=== PATIENT | female | born 1950 | race Caucasian/White ===

== ENCOUNTER 2017-12-31 14:39 | Observation (INO) ==
[2017-12-31] MEDS ORDERED: ONDANSETRON 4 MG/2 ML VIAL IV STA (14:55)
[2017-12-31] MEDS ORDERED: HYDROmorphone 2 MG/1 ML VIAL IV STA (14:55)
[2017-12-31] MEDS ORDERED: SODIUM CHLORIDE 0.9% 1,000 ML IV STA (14:55)
[2017-12-31] MEDS ORDERED: KETOROLAC 30 MG/1 ML VIAL IM STA (14:55)
[2017-12-31] MEDS ORDERED: ONDANSETRON 4 MG/2 ML VIAL ONE (14:58)
[2017-12-31] MEDS ORDERED: HYDROmorphone 2 MG/1 ML VIAL ONE (14:59)
[2017-12-31] MEDS ORDERED: KETOROLAC 30 MG/1 ML VIAL ONE (14:59)
[2017-12-31 16:54] LABS: Basophils % 0.3 % (0.0-0.8); Eosinophils # 0.1 10*3/uL (0.0-0.87); Eosinophils % 0.9 % (0.00-10.9); Hemoglobin 9.8 GM/DL (12.0-16.0); Immature Granulocytes % 0.3 %; Immature Granulocytes Absolute 0.03 #; Lymphocytes # 0.8 10*3/uL (1.4-4.0); Lymphocytes % 8.7 % (21.3-54.2); Mean Corpuscular HGB Conc 33.8 GM/DL (32-36); Mean Corpuscular Hemoglobin 32 PG (27-34); Mean Corpuscular Volume 94.2 FL (87-102); Mean Platelet Volume 10.1 FL (9.6-12.0); Monocytes # 0.5 10*3/uL (0.11-0.8); Monocytes % 5.7 % (1.7-12.7); Neutrophils # 7.5 10*3/uL (1.4-7.4); Neutrophils % 84.1 % (38.7-73.9); Platelet Count 208 T/CUMM (130-400); Red Blood Count 3.08 MC/CUMM (3.8-5.5); Red Cell Distribution Width 13.2 % (9.3-17.3)
[2017-12-31 17:16] LABS: Albumin 3.4 G/DL (3.4-5.0); Bilirubin,Total 0.5 MG/DL (0.2-1.0); Calcium 8.1 MG/DL (8.5-10.1); Osmolality,Calculated 279.4 MOS/KG (273-304); Potassium 3.7 MMOL/L (3.5-5.1); Total Protein 5.8 G/DL (6.4-8.3)
[2017-12-31] MEDS ORDERED: PROMETHAZINE 25 MG/1 ML VIAL IM PRN (18:40)
[2017-12-31] MEDS ORDERED: ACETAMINOPHEN 325 MG TABLET PO PRN (18:40)
[2017-12-31] MEDS: SODIUM CHLORIDE 0.45% 1,000 ML IV SCH (18:40)
[2017-12-31 18:54] LABS: Apearance,Urine Slightly Hazy (Clear); Bilirubin,Urine Negative (Negative); Blood, Urine Small mg/dL (Negative); Glucose,Urine (UA) Negative (Negative); Ketones,Urine 80 mg/dL (Negative); Mucus,Urine Occasional /LPF (Occasional); Nitrite,Urine Negative (Negative); Protein,Urine Negative; RBC,Urine 5 /HPF (0-4); Squamous Epithelial Cell,Urine Occasional /HPF (0-10); Urine Color Yellow (Yellow); Urine Urobilinogen < 2.0 EU/DL (0.2-1.0); WBC,Urine 3 /HPF (0-6)
[2017-12-31] MEDS: HYDROmorphone 2 MG/1 ML VIAL IV PRN (22:24)
[2018-01-01] MEDS: ONDANSETRON 4 MG/2 ML VIAL IV PRN ×2 (03:16→09:29)
[2018-01-01] MEDS: HYDROmorphone 2 MG/1 ML VIAL IV PRN ×2 (03:16→09:28)
[2018-01-01] MEDS: SODIUM CHLORIDE 0.45% 1,000 ML IV SCH (03:17)
[2018-01-01] MEDS ORDERED: TAMSULOSIN 0.4 MG CAPSULE PO SCH (09:00)
[2018-01-01] MEDS ORDERED: WARFARIN 3 MG TABLET PO SCH (09:30)
[2018-01-01] MEDS ORDERED: HYDROmorphone 2 MG TABLET PO SCH (09:30)
[2018-01-01 10:58] VITALS: BP 113/64
[2018-01-01] MEDS ORDERED: POTASSIUM CITRATE 10 MEQ TABLET PO SCH (21:00)
[2018-01-01] MEDS ORDERED: SOTALOL 80 MG TABLET PO SCH (21:00)
[2018-01-02] MEDS ORDERED: LEVOTHYROXINE 112 MCG TABLET PO SCH (07:00)
[2018-01-02] MEDS ORDERED: WARFARIN 2 MG TABLET PO SCH (09:00)
[2018-01-02] MEDS ORDERED: TAMSULOSIN 0.4 MG CAPSULE PO SCH (09:00)
[2018-01-02] MEDS ORDERED: PANTOPRAZOLE 40 MG TABLET PO SCH (09:00)
[2018-01-02] MEDS ORDERED: CELECOXIB 200 MG CAPSULE PO SCH (09:00)
[2018-01-02] MEDS ORDERED: ASPIRIN 325 MG TABLET PO SCH (09:00)
== END 2018-01-01 11:05 | disposition home or self-care (01) ==
LOC: N.EDINP 14:39 → N.ED 14:39 → N.EDINP 18:30 → N.5E 18:40
PROVIDERS: ADMIT Urology; ATTEND Urology

== ENCOUNTER 2022-06-28 09:28 | Inpatient (IN) ==
[2022-06-28] MEDS ORDERED: HEPARIN 5,000 UNIT/1 ML VIAL IV STA (09:37)
[2022-06-28] MEDS ORDERED: TICAGRELOR 90 MG TABLET PO STA (09:37)
[2022-06-28] MEDS ORDERED: ASPIRIN CHEW 81 MG TABLET PO STA (09:38)
[2022-06-28] MEDS ORDERED: MORPHINE 2 MG/1 ML SYRINGE IV STA ×2 (09:38→09:50)
[2022-06-28] MEDS ORDERED: ASPIRIN 325 MG TABLET PO STA (09:38)
[2022-06-28] MEDS ORDERED: HEPARIN 5,000 UNIT/1 ML VIAL IV ONE (09:38)
[2022-06-28] MEDS ORDERED: NITROGLYCERIN SL 0.4 MG TABLET SL STA (09:38)
[2022-06-28] MEDS ORDERED: ONDANSETRON 4 MG/2 ML VIAL IV STA (09:39)
[2022-06-28] MEDS ORDERED: MORPHINE 2 MG/1 ML SYRINGE ONE (09:40)
[2022-06-28] MEDS ORDERED: ASPIRIN EC 81 MG TABLET PO ONE (09:41)
[2022-06-28 09:48] LABS: Basophils # 0.1 10*3/uL (0.0-0.2); Basophils % 0.9 % (0.0-0.8); Eosinophils # 0.5 10*3/uL (0.0-0.87); Eosinophils % 5.9 % (0.00-10.9); Hematocrit 37.1 VOL% (35.7-47.0); Hemoglobin 12.3 GM/DL (12.0-16.0); Immature Granulocytes % 0.4 %; Immature Granulocytes Absolute 0.03 #; Lymphocytes # 2.4 10*3/uL (1.4-4.0); Lymphocytes % 29.4 % (21.3-54.2); Mean Corpuscular HGB Conc 33.2 GM/DL (32-36); Mean Corpuscular Volume 93.5 FL (87-102); Mean Platelet Volume 9.8 FL (9.6-12.0); Monocytes # 0.5 10*3/uL (0.11-0.8); Monocytes % 6.4 % (1.7-12.7); Platelet Count 285 T/CUMM (130-400); Red Blood Count 3.97 MC/CUMM (3.8-5.5); Red Cell Distribution Width 13.1 % (9.3-17.3); White Blood Count 8.1 T/CUMM (4-12)
[2022-06-28] MEDS: NITROGLYCERIN SL 0.4 MG TABLET SL PRN ×3 (09:54→10:04)
[2022-06-28 10:11] LABS: Calcium 8.6 MG/DL (8.5-10.1); Osmolality,Calculated 291.7 MOS/KG (273-304)
[2022-06-28] MEDS ORDERED: HEPARIN/NACL 0.9% 2 UNITS/ML 2,000 UNIT/1,000 ML BAG IV ONE (10:11)
[2022-06-28] MEDS ORDERED: fentaNYL 100 MCG/2 ML VIAL ONE (10:11)
[2022-06-28] MEDS ORDERED: MIDAZOLAM 2 MG/2 ML VIAL ONE (10:11)
[2022-06-28] MEDS ORDERED: LIDOCAINE 1%/EPI INJ 20 ML VIAL ONE (10:11)
[2022-06-28] MEDS ORDERED: MORPHINE 10 MG/1 ML VIAL ONE (10:19)
[2022-06-28] MEDS ORDERED: TIROFIBAN 5,000 MCG/100 ML PREMIX IV ONE (10:33)
[2022-06-28] MEDS ORDERED: NITROGLYCERIN DRIP 50 MG/250 ML BOTTLE IV ONE (10:37)
[2022-06-28] MEDS ORDERED: TIROFIBAN 5,000 MCG/100 ML PREMIX IV SCH (10:38)
[2022-06-28] MEDS ORDERED: NITROGLYCERIN DRIP 50 MG/250 ML BOTTLE IV PRN (10:52)
[2022-06-28] MEDS ORDERED: HEPARIN 5,000 UNIT/1 ML VIAL ONE (10:54)
[2022-06-28] MEDS ORDERED: METOPROLOL TARTRATE 25 MG TABLET PO ONE (11:29)
[2022-06-28] MEDS ORDERED: SODIUM CHLORIDE 0.45% 1,000 ML IV SCH (11:30)
[2022-06-28] MEDS ORDERED: HYDROmorphone 1 MG/1 ML SYRINGE ONE (11:33)
[2022-06-28] MEDS: TICAGRELOR 90 MG TABLET PO SCH (20:14)
[2022-06-28] MEDS: ATORVASTATIN 40 MG TABLET PO SCH (20:14)
[2022-06-28] MEDS: METOPROLOL TARTRATE 25 MG TABLET PO SCH (20:15)
[2022-06-29] MEDS ORDERED: ACETAMINOPHEN 325 MG TABLET PO PRN (00:37)
[2022-06-29] MEDS: ONDANSETRON 4 MG/2 ML VIAL IV PRN ×2 (00:51→12:59)
[2022-06-29 04:47] LABS: Basophils % 0.3 % (0.0-0.8); Eosinophils % 0.2 % (0.00-10.9); Hematocrit 30.9 VOL% (35.7-47.0); Immature Granulocytes % 0.5 %; Immature Granulocytes Absolute 0.05 #; Lymphocytes # 1.1 10*3/uL (1.4-4.0); Lymphocytes % 10.2 % (21.3-54.2); Mean Corpuscular HGB Conc 32.7 GM/DL (32-36); Mean Corpuscular Volume 95.7 FL (87-102); Mean Platelet Volume 10.2 FL (9.6-12.0); Monocytes # 0.9 10*3/uL (0.11-0.8); Monocytes % 8.5 % (1.7-12.7); Neutrophils % 80.3 % (38.7-73.9); Platelet Count 229 T/CUMM (130-400); Red Blood Count 3.23 MC/CUMM (3.8-5.5); Red Cell Distribution Width 13.1 % (9.3-17.3)
[2022-06-29 04:57] LABS: White Blood Count 10.7 T/CUMM (4-12)
[2022-06-29 04:58] LABS: Hemoglobin 10.1 GM/DL (12.0-16.0)
[2022-06-29 07:09] LABS: Calcium 7.9 MG/DL (8.5-10.1); Osmolality,Calculated 281.4 MOS/KG (273-304); Potassium 3.7 MMOL/L (3.5-5.1)
[2022-06-29] MEDS: TICAGRELOR 90 MG TABLET PO SCH ×2 (08:23→20:51)
[2022-06-29] MEDS: ASPIRIN EC 81 MG TABLET PO SCH (08:23)
[2022-06-29] MEDS: METOPROLOL TARTRATE 25 MG TABLET PO SCH ×3 (08:23→20:51)
[2022-06-29] MEDS: PANTOPRAZOLE 40 MG TABLET PO SCH (08:23)
[2022-06-29] MEDS ORDERED: ASPIRIN EC 81 MG TABLET PO SCH (09:00)
[2022-06-29] MEDS ORDERED: lisinopriL 2.5 MG TABLET PO SCH (09:00)
[2022-06-29] MEDS ORDERED: DENOSUMAB 60 MG/ML SYRINGE SUBCUT SCH (09:00)
[2022-06-29] MEDS: SOTALOL 80 MG TABLET PO SCH ×2 (09:27→20:51)
[2022-06-29] MEDS: ESCITALOPRAM 10 MG TABLET PO SCH (09:28)
[2022-06-29] MEDS: LEVOTHYROXINE 100 MCG TABLET PO SCH (09:28)
[2022-06-29] MEDS: APIXABAN 5 MG TABLET PO SCH ×2 (09:28→20:51)
[2022-06-29] MEDS: traMADol 50 MG TABLET PO SCH ×2 (09:29→20:51)
[2022-06-29] MEDS ORDERED: PANTOPRAZOLE 40 MG TABLET PO SCH (19:00)
[2022-06-29] MEDS: ATORVASTATIN 40 MG TABLET PO SCH (20:51)
[2022-06-30] MEDS: LEVOTHYROXINE 100 MCG TABLET PO SCH (05:45)
[2022-06-30 05:58] LABS: Basophils % 0.4 % (0.0-0.8); Eosinophils # 0.2 10*3/uL (0.0-0.87); Eosinophils % 1.7 % (0.00-10.9); Hematocrit 34.4 VOL% (35.7-47.0); Hemoglobin 10.8 GM/DL (12.0-16.0); Immature Granulocytes % 0.2 %; Immature Granulocytes Absolute 0.02 #; Lymphocytes # 1.7 10*3/uL (1.4-4.0); Lymphocytes % 18.1 % (21.3-54.2); Mean Corpuscular HGB Conc 31.4 GM/DL (32-36); Mean Corpuscular Volume 96.9 FL (87-102); Mean Platelet Volume 10.2 FL (9.6-12.0); Monocytes # 0.7 10*3/uL (0.11-0.8); Monocytes % 7.3 % (1.7-12.7); Neutrophils % 72.3 % (38.7-73.9); Platelet Count 252 T/CUMM (130-400); Red Blood Count 3.55 MC/CUMM (3.8-5.5); Red Cell Distribution Width 13.2 % (9.3-17.3); White Blood Count 9.6 T/CUMM (4-12)
[2022-06-30 06:13] LABS: Albumin 3.3 G/DL (3.4-5.0); Bilirubin,Total 0.9 MG/DL (0.20-1.00); Calcium 8.6 MG/DL (8.5-10.1); Osmolality,Calculated 286.7 MOS/KG (273-304); Potassium 3.5 MMOL/L (3.5-5.1); Total Protein 6.7 G/DL (6.4-8.2)
[2022-06-30] MEDS ORDERED: POTASSIUM CHLORIDE 20 MEQ TABLET PO ONE (08:52)
[2022-06-30] MEDS: ASPIRIN EC 81 MG TABLET PO SCH (08:53)
[2022-06-30] MEDS: PANTOPRAZOLE 40 MG TABLET PO SCH (08:53)
[2022-06-30] MEDS: APIXABAN 5 MG TABLET PO SCH (08:53)
[2022-06-30] MEDS: ESCITALOPRAM 10 MG TABLET PO SCH (08:53)
[2022-06-30] MEDS: traMADol 50 MG TABLET PO SCH (08:53)
[2022-06-30] MEDS: SOTALOL 80 MG TABLET PO SCH (08:54)
[2022-06-30] MEDS: TICAGRELOR 90 MG TABLET PO SCH (08:54)
[2022-06-30] MEDS ORDERED: ROSUVASTATIN 20 MG TABLET PO SCH (09:00)
[2022-06-30] MEDS ORDERED: METOPROLOL SUCCINATE XL 25 MG TABLET PO SCH (09:00)
[2022-06-30] MEDS ORDERED: ROSUVASTATIN 10 MG TABLET PO SCH (09:00)
[2022-06-30 10:28] VITALS: BP 95/59
== END 2022-06-30 12:05 | disposition home or self-care (01) | DRG 247 ==
LOC: N.ED 09:28 → N.EDINP 10:11 → SUATTDRO 11:22 → N.EDINP 11:22 → N.ICU 13:14 → N.TELES 06-29 23:22
PROVIDERS: ADMIT Internal Medicine Interventional Cardiology; ATTEND Internal Medicine Cardiovascular Disease
PROC: CLCCHCL (ICD-10-PCS; 2022-06-28 10:45)

== ENCOUNTER 2022-11-18 11:19 | Inpatient (IN) ==
[2022-11-18] MEDS ORDERED: ONDANSETRON 4 MG/2 ML VIAL ONE (13:06)
[2022-11-18] MEDS ORDERED: HYDROmorphone 1 MG/1 ML SYRINGE ONE (13:06)
[2022-11-18] MEDS ORDERED: ONDANSETRON 4 MG/2 ML VIAL IV STA (13:15)
[2022-11-18] MEDS ORDERED: HYDROmorphone 1 MG/1 ML SYRINGE IV STA (13:15)
[2022-11-18] MEDS ORDERED: SODIUM CHLORIDE 0.9% 1,000 ML IV STA (14:12)
[2022-11-18 14:14] LABS: Bacteria,Urine Occasional /HPF (Few); Mucus,Urine Many /LPF (Occasional); RBC,Urine 67 /HPF (0-4); Squamous Epithelial Cell,Urine Occasional /HPF (0-10); Urine Appearance Clear (Clear); Urine Color Orange (Yellow); Urine Specific Gravity 1.032 (1.001-1.035)
[2022-11-18 14:15] LABS: Bilirubin,Urine Small mg/dL (Negative); Blood, Urine Large mg/dL (Negative); Glucose,Urine (UA) 100 mg/dL (Negative); Ketones,Urine 80 mg/dL (Negative); Nitrite,Urine Positive (Negative); Protein,Urine >=300 mg/dL (Negative)
[2022-11-18 14:54] LABS: Basophils % 0.3 % (0.0-0.8); Eosinophils # 0.1 10*3/uL (0.0-0.87); Eosinophils % 2.3 % (0.00-10.9); Hematocrit 29.4 VOL% (35.7-47.0); Hemoglobin 9.2 GM/DL (12.0-16.0); Immature Granulocytes % 0.3 %; Immature Granulocytes Absolute 0.02 #; Lymphocytes # 1.1 10*3/uL (1.4-4.0); Mean Corpuscular HGB Conc 31.3 GM/DL (32-36); Mean Corpuscular Volume 88.6 FL (87-102); Mean Platelet Volume 9.4 FL (9.6-12.0); Monocytes # 0.4 10*3/uL (0.11-0.8); Monocytes % 7.1 % (1.7-12.7); Platelet Count 232 T/CUMM (130-400); Red Blood Count 3.32 MC/CUMM (3.8-5.5); Red Cell Distribution Width 14.1 % (9.3-17.3); White Blood Count 6.2 T/CUMM (4-12)
[2022-11-18 15:14] LABS: Albumin 2.9 G/DL (3.4-5.0); Bilirubin,Total 0.5 MG/DL (0.20-1.00); Calcium 8.4 MG/DL (8.5-10.1); Osmolality,Calculated 279.3 MOS/KG (273-304); Potassium 3.7 MMOL/L (3.5-5.1); Total Protein 6.1 G/DL (6.4-8.2)
[2022-11-18] MEDS ORDERED: ONDANSETRON 4 MG/2 ML VIAL IV PRN (16:05)
[2022-11-18] MEDS ORDERED: HYDROmorphone 1 MG/1 ML SYRINGE IV PRN (16:05)
[2022-11-18] MEDS ORDERED: ACETAMINOPHEN 325 MG TABLET PO PRN (16:05)
[2022-11-18] MEDS ORDERED: PROMETHAZINE 25 MG/1 ML VIAL IM PRN (16:05)
[2022-11-18] MEDS: LACTATED RINGERS 1,000 ML IV SCH ×2 (17:53→20:30)
[2022-11-18] MEDS ORDERED: NITROGLYCERIN SL 0.4 MG TABLET SL PRN (19:10)
[2022-11-18] MEDS: SOTALOL 80 MG TABLET PO SCH (20:30)
[2022-11-18] MEDS: PANTOPRAZOLE 40 MG TABLET PO SCH (20:30)
[2022-11-18] MEDS: cefTRIAXone 1,000 MG in SODIUM CHLORIDE 0.9% 100 ML IV SCH (20:30)
[2022-11-18] MEDS: DOCUSATE SODIUM 100 MG CAPSULE PO SCH (20:30)
[2022-11-18] MEDS: ENOXAPARIN 40 MG/0.4 ML SYRINGE SUBCUT SCH (20:30)
[2022-11-18] MEDS: TAMSULOSIN 0.4 MG CAPSULE PO SCH (20:30)
[2022-11-19] MEDS: LACTATED RINGERS 1,000 ML IV SCH ×2 (04:20→13:46)
[2022-11-19 04:58] LABS: Basophils % 0.4 % (0.0-0.8); Eosinophils # 0.2 10*3/uL (0.0-0.87); Eosinophils % 4.3 % (0.00-10.9); Hematocrit 29.4 VOL% (35.7-47.0); Immature Granulocytes % 0.2 %; Immature Granulocytes Absolute 0.01 #; Lymphocytes # 1.4 10*3/uL (1.4-4.0); Lymphocytes % 25.8 % (21.3-54.2); Mean Corpuscular HGB Conc 30.6 GM/DL (32-36); Mean Corpuscular Volume 90.2 FL (87-102); Mean Platelet Volume 9.9 FL (9.6-12.0); Monocytes # 0.5 10*3/uL (0.11-0.8); Monocytes % 10.2 % (1.7-12.7); Neutrophils % 59.1 % (38.7-73.9); Platelet Count 213 T/CUMM (130-400); Red Blood Count 3.26 MC/CUMM (3.8-5.5); Red Cell Distribution Width 14.4 % (9.3-17.3); White Blood Count 5.3 T/CUMM (4-12)
[2022-11-19 05:27] LABS: Calcium 8.7 MG/DL (8.5-10.1); Osmolality,Calculated 281.3 MOS/KG (273-304); Potassium 3.9 MMOL/L (3.5-5.1)
[2022-11-19] MEDS: LEVOTHYROXINE 100 MCG TABLET PO SCH (05:30)
[2022-11-19] MEDS: SOTALOL 80 MG TABLET PO SCH ×2 (08:47→20:32)
[2022-11-19] MEDS: DOCUSATE SODIUM 100 MG CAPSULE PO SCH ×2 (08:47→20:33)
[2022-11-19] MEDS ORDERED: METOPROLOL SUCCINATE XL 25 MG TABLET PO SCH (09:00)
[2022-11-19] MEDS: PANTOPRAZOLE 40 MG TABLET PO SCH (20:32)
[2022-11-19] MEDS: ROSUVASTATIN 20 MG TABLET PO SCH (20:32)
[2022-11-19] MEDS: ENOXAPARIN 40 MG/0.4 ML SYRINGE SUBCUT SCH (20:32)
[2022-11-19] MEDS: TAMSULOSIN 0.4 MG CAPSULE PO SCH (20:32)
[2022-11-19] MEDS: cefTRIAXone 1,000 MG in SODIUM CHLORIDE 0.9% 100 ML IV SCH (20:37)
[2022-11-20] MEDS: LACTATED RINGERS 1,000 ML IV SCH ×2 (00:14→03:39)
[2022-11-20 05:37] LABS: Basophils % 0.4 % (0.0-0.8); Eosinophils # 0.3 10*3/uL (0.0-0.87); Eosinophils % 5.4 % (0.00-10.9); Hematocrit 26.7 VOL% (35.7-47.0); Hemoglobin 8.1 GM/DL (12.0-16.0); Immature Granulocytes % 0.2 %; Immature Granulocytes Absolute 0.01 #; Lymphocytes # 1.2 10*3/uL (1.4-4.0); Lymphocytes % 25.5 % (21.3-54.2); Mean Corpuscular HGB Conc 30.3 GM/DL (32-36); Mean Corpuscular Volume 90.8 FL (87-102); Mean Platelet Volume 9.6 FL (9.6-12.0); Monocytes # 0.4 10*3/uL (0.11-0.8); Monocytes % 8.7 % (1.7-12.7); Neutrophils % 59.8 % (38.7-73.9); Platelet Count 192 T/CUMM (130-400); Red Blood Count 2.94 MC/CUMM (3.8-5.5); Red Cell Distribution Width 14.8 % (9.3-17.3); White Blood Count 4.8 T/CUMM (4-12)
[2022-11-20] MEDS: LEVOTHYROXINE 100 MCG TABLET PO SCH (05:55)
[2022-11-20 05:59] LABS: Alanine Aminotransferase 15 U/L (13-56); Albumin 2.6 G/DL (3.4-5.0); Alkaline Phosphatase 37 U/L (45-117); Aspartate Amino Transferase 11 U/L (0-37); Bilirubin,Total < 0.39 MG/DL (0.20-1.00); Blood Urea Nitrogen 9 MG/DL (7-18); Carbon Dioxide 26 MMOL/L (21-32); Chloride 114 MMOL/L (98-107); Glucose 105 MG/DL (74-106); Osmolality,Calculated 290.4 MOS/KG (273-304); Potassium 3.6 MMOL/L (3.5-5.1); Sodium 147 MMOL/L (136-145); Total Protein 5.3 G/DL (6.4-8.2)
[2022-11-20] MEDS ORDERED: FAMOTIDINE 20 MG TABLET PO ONE (06:00)
[2022-11-20] MEDS ORDERED: SCOPOLAMINE 1.5 MG PATCH TRANSDERM ONE (06:00)
[2022-11-20] MEDS: DOCUSATE SODIUM 100 MG CAPSULE PO SCH ×2 (09:05→20:33)
[2022-11-20] MEDS: DEXT 5% NACL 0.45% KCL 20 MEQ 20 MEQ/1,000 ML BAG IV SCH ×3 (09:05→22:28)
[2022-11-20] MEDS: SOTALOL 80 MG TABLET PO SCH ×2 (09:05→20:33)
[2022-11-20] MEDS ORDERED: LIDOCAINE 2% 5 ML VIAL ONE (11:24)
[2022-11-20] MEDS ORDERED: MIDAZOLAM 2 MG/2 ML VIAL ONE (11:24)
[2022-11-20] MEDS ORDERED: propofoL 200 MG/20 ML VIAL IV ONE (11:24)
[2022-11-20] MEDS ORDERED: fentaNYL 100 MCG/2 ML VIAL ONE (11:25)
[2022-11-20] MEDS ORDERED: LACTATED RINGERS 1,000 ML IV SCH (12:30)
[2022-11-20] MEDS ORDERED: SEVOFLURANE 1 UNIT/15 MINUTE INH ONE ×2 (12:31→13:26)
[2022-11-20] MEDS ORDERED: ONDANSETRON 4 MG/2 ML VIAL ONE (12:31)
[2022-11-20] MEDS ORDERED: DEXAMETHASONE 4 MG/1 ML VIAL ONE (12:31)
[2022-11-20] MEDS ORDERED: ePHEDrine 50 MG/ML VIAL ONE (12:50)
[2022-11-20] MEDS ORDERED: cefTRIAXone 1,000 MG VIAL ONE (12:57)
[2022-11-20] MEDS: ASPIRIN CHEW 81 MG TABLET PO SCH (16:09)
[2022-11-20] MEDS: cefTRIAXone 1,000 MG in SODIUM CHLORIDE 0.9% 100 ML IV SCH (20:31)
[2022-11-20] MEDS: TAMSULOSIN 0.4 MG CAPSULE PO SCH (20:33)
[2022-11-20] MEDS: PANTOPRAZOLE 40 MG TABLET PO SCH (20:33)
[2022-11-20] MEDS: ROSUVASTATIN 20 MG TABLET PO SCH (20:33)
[2022-11-20] MEDS: ENOXAPARIN 40 MG/0.4 ML SYRINGE SUBCUT SCH (20:34)
[2022-11-21] MEDS: LEVOTHYROXINE 100 MCG TABLET PO SCH (06:17)
[2022-11-21] MEDS: DEXT 5% NACL 0.45% KCL 20 MEQ 20 MEQ/1,000 ML BAG IV SCH (06:21)
[2022-11-21] MEDS: SOTALOL 80 MG TABLET PO SCH (09:08)
[2022-11-21] MEDS: ASPIRIN CHEW 81 MG TABLET PO SCH (09:08)
[2022-11-21] MEDS: DOCUSATE SODIUM 100 MG CAPSULE PO SCH (09:09)
[2022-11-21 11:49] VITALS: BP 122/67
== END 2022-11-21 14:50 | disposition home or self-care (01) | DRG 660 ==
LOC: N.EDINP 11:19 → N.ED 11:19 → N.2E 16:31
PROVIDERS: ADMIT Family Medicine; ATTEND Family Medicine